=== PATIENT | male | born 1990 | race African-American/Black ===

== ENCOUNTER 2023-06-28 12:43 | Inpatient (IN) | payer OTHER ==
[2023-06-28 13:32] VITALS: BMI 21.3
[2023-06-28] MEDS ORDERED: LOPERAMIDE HCL 2 MG CAPSULE PO PRN (14:23)
[2023-06-28] MEDS ORDERED: POLYETHYLENE GLYCOL (HEALTHYLAX) 3350 17 GM PACKET PO PRN (14:23)
[2023-06-28] MEDS ORDERED: NALOXONE HCL 0.4 MG/ML VIAL IM PRN (14:23)
[2023-06-28] MEDS ORDERED: NALOXONE HCL (KLOXXADO) 8 MG SPRAY NS PRN (14:23)
[2023-06-28] MEDS ORDERED: MAGNESIUM HYDROX 2400MG/30ML ORAL SUSPENSION 30 ML CUP PO PRN (14:23)
[2023-06-28] MEDS ORDERED: BENZOCAINE/MENTHOL (CHLORASEPTIC ) LOZENGE MM PRN (14:23)
[2023-06-28] MEDS ORDERED: guaiFENesin 600 MG TABLET.ER (FP) PO PRN (14:23)
[2023-06-28] MEDS ORDERED: COLLOIDAL OATMEAL 1 BAR EACH TP PRN (14:23)
[2023-06-28] MEDS ORDERED: MAG HYDROX/AL HYDROX/SIMETH 30 ML UNIT-DOSE CUP PO PRN (14:23)
[2023-06-28] MEDS ORDERED: BENZONATATE 200 MG CAPSULE PO PRN (14:23)
[2023-06-28] MEDS ORDERED: NICOTINE POLACRILEX 2 MG GUM BUC PRN (14:30)
[2023-06-28] MEDS: THIAMINE HCL 100 MG TABLET (FP) PO SCH (21:52)
[2023-06-28] MEDS: MELATONIN 5 MG TABLETS PO SCH (21:52)
[2023-06-29] MEDS: NICOTINE 14 MG/24 HOURS TOPICAL PATCH TD SCH (10:14)
[2023-06-29] MEDS: PRENATAL VITAMINS W/ FOLIC ACID TABLET (FP) PO SCH (10:14)
[2023-06-29 12:09] LABS: HEMATOCRIT 41.3 % (35.4-49); HEMOGLOBIN 14.3 GM/dL (11.7-16.9); MCH 30.6 pg (25.7-33.7); MCHC 34.6 g/dl (32.0-35.9); MEAN CELL VOLUME 88.4 fl (80-96); MEAN PLT VOLUME 8.9 fl (7.5-11.1); PLATELET COUNT 307 10^3/uL (134-434); RBC 4.68 M/mm3 (4.00-5.60); RDW 13.1 % (11.9-15.9); WHITE BLOOD COUNT 2.9 K/mm3 (4.0-10.0)
[2023-06-29 12:34] LABS: CHLORIDE 102 mmol/L (98-107); POTASSIUM 4.7 mmol/L (3.5-5.1); SODIUM 138 mmol/L (136-145)
[2023-06-29 12:36] LABS: CALCIUM 9.4 mg/dL (8.5-10.1)
[2023-06-29 12:37] LABS: ALBUMIN 4.1 g/dl (3.4-5.0); GLUCOSE,RANDOM 83 mg/dL (74-106)
[2023-06-29 12:38] LABS: ANION GAP 9 mmol/L (4-13); BLOOD UREA NITROGEN 16.8 mg/dL (7-18); CO2 27 mmol/L (21-32)
[2023-06-29 12:40] LABS: CREATININE 1.1 mg/dL (0.55-1.3)
[2023-06-29 12:41] LABS: SGOT/AST 17 U/L (15-37); SGPT/ALT 46 U/L (13-61)
[2023-06-29 12:42] LABS: BILIRUBIN,TOTAL 0.8 mg/dL (0.2-1)
[2023-06-29 12:43] LABS: ALK PHOS 72 U/L (45-117)
[2023-06-29] MEDS ORDERED: BICTEGRAV/EMTRICIT/TENOFOV (BIKTARVY) 50-200-25 MG TABLET PO SCH ×2 (14:15→18:20)
[2023-06-29] MEDS: IBUPROFEN 600 MG TABLET (FP) PO PRN (16:50)
[2023-06-29] MEDS: BICTEGRAV/EMTRICIT/TENOFOV (BIKTARVY) 50-200-25 MG TABLET PO SCH (18:45)
[2023-06-29 18:50] LABS: PH,URINE 5.5 (5.0-8.0); URINE APPEARANCE CLEAR; URINE BILIRUBIN NEGATIVE (NEGATIVE); URINE COLOR YELLOW; URINE GLUCOSE (UA) NEGATIVE (NEGATIVE); URINE KETONE NEGATIVE (NEGATIVE); URINE LEUK ESTERASE NEGATIVE (NEGATIVE); URINE NITRITE NEGATIVE (NEGATIVE); URINE PROTEIN NEGATIVE (NEGATIVE); URINE UROBILINOGEN 0.2 mg/dL (0.2-1.0)
[2023-06-29] MEDS: MELATONIN 5 MG TABLETS PO SCH (21:43)
[2023-06-29] MEDS: THIAMINE HCL 100 MG TABLET (FP) PO SCH (21:43)
[2023-06-29] MEDS ORDERED: TRIMETHOBENZAMIDE HCL 200MG/2ML INJ IM ONE (22:09)
[2023-06-29] MEDS: hydrOXYzine PAMOATE 25 MG CAPSULE (FP) PO PRN (23:51)
[2023-06-30] MEDS: PRENATAL VITAMINS W/ FOLIC ACID TABLET (FP) PO SCH (09:24)
[2023-06-30] MEDS: NICOTINE 14 MG/24 HOURS TOPICAL PATCH TD SCH (09:26)
[2023-06-30] MEDS: BICTEGRAV/EMTRICIT/TENOFOV (BIKTARVY) 50-200-25 MG TABLET PO SCH (10:04)
[2023-06-30] MEDS ORDERED: TUBERCULIN PPD 5 TU/0.1ML VIAL ID ONE (10:52)
[2023-06-30] MEDS: IBUPROFEN 600 MG TABLET (FP) PO PRN (17:12)
[2023-06-30 17:48] LABS: HIV INTERPRETATION PRESUMPTIVE POSITIVE (NEGATIVE)
[2023-06-30] MEDS: THIAMINE HCL 100 MG TABLET (FP) PO SCH (21:30)
[2023-06-30] MEDS: MELATONIN 5 MG TABLETS PO SCH (21:30)
[2023-07-01] MEDS: BICTEGRAV/EMTRICIT/TENOFOV (BIKTARVY) 50-200-25 MG TABLET PO SCH (09:32)
[2023-07-01] MEDS: PRENATAL VITAMINS W/ FOLIC ACID TABLET (FP) PO SCH (09:33)
[2023-07-01] MEDS: NICOTINE 14 MG/24 HOURS TOPICAL PATCH TD SCH (09:33)
[2023-07-01] MEDS: IBUPROFEN 600 MG TABLET (FP) PO PRN (10:57)
[2023-07-01] MEDS: THIAMINE HCL 100 MG TABLET (FP) PO SCH (21:26)
[2023-07-01] MEDS: MELATONIN 5 MG TABLETS PO SCH (21:26)
[2023-07-01] MEDS: QUEtiapine FUMARATE 50 MG TABLET PO SCH (21:27)
[2023-07-01] MEDS ORDERED: QUEtiapine FUMARATE 50 MG TABLET PO SCH (22:00)
[2023-07-02] MEDS: NICOTINE 14 MG/24 HOURS TOPICAL PATCH TD SCH (09:48)
[2023-07-02] MEDS: BICTEGRAV/EMTRICIT/TENOFOV (BIKTARVY) 50-200-25 MG TABLET PO SCH (09:48)
[2023-07-02] MEDS: PRENATAL VITAMINS W/ FOLIC ACID TABLET (FP) PO SCH (09:48)
[2023-07-02] MEDS: QUEtiapine FUMARATE 50 MG TABLET PO SCH (21:16)
[2023-07-02] MEDS: MELATONIN 5 MG TABLETS PO SCH (21:16)
[2023-07-02] MEDS: THIAMINE HCL 100 MG TABLET (FP) PO SCH (21:16)
[2023-07-03] MEDS: NICOTINE 14 MG/24 HOURS TOPICAL PATCH TD SCH (09:48)
[2023-07-03] MEDS: PRENATAL VITAMINS W/ FOLIC ACID TABLET (FP) PO SCH (09:48)
[2023-07-03] MEDS: BICTEGRAV/EMTRICIT/TENOFOV (BIKTARVY) 50-200-25 MG TABLET PO SCH (09:48)
[2023-07-03] MEDS: MELATONIN 5 MG TABLETS PO SCH (21:19)
[2023-07-03] MEDS: QUEtiapine FUMARATE 50 MG TABLET PO SCH (21:19)
[2023-07-03] MEDS: THIAMINE HCL 100 MG TABLET (FP) PO SCH (21:19)
[2023-07-04] MEDS: IBUPROFEN 600 MG TABLET (FP) PO PRN (06:27)
[2023-07-04] MEDS: PRENATAL VITAMINS W/ FOLIC ACID TABLET (FP) PO SCH (09:52)
[2023-07-04] MEDS: BICTEGRAV/EMTRICIT/TENOFOV (BIKTARVY) 50-200-25 MG TABLET PO SCH (09:52)
[2023-07-04] MEDS: NICOTINE 14 MG/24 HOURS TOPICAL PATCH TD SCH (09:53)
[2023-07-04] MEDS: hydrOXYzine PAMOATE 25 MG CAPSULE (FP) PO PRN ×2 (10:03→21:27)
[2023-07-04] MEDS: OLANZapine 5 MG TABLET PO SCH ×2 (10:33→21:28)
[2023-07-04] MEDS ORDERED: NICOTINE 14 MG/24 HOURS TOPICAL PATCH TD PRN (16:05)
[2023-07-04] MEDS: THIAMINE HCL 100 MG TABLET (FP) PO SCH (21:27)
[2023-07-04] MEDS: MELATONIN 5 MG TABLETS PO SCH (21:28)
[2023-07-04] MEDS: QUEtiapine FUMARATE 50 MG TABLET PO SCH (21:28)
[2023-07-05] MEDS: PRENATAL VITAMINS W/ FOLIC ACID TABLET (FP) PO SCH (09:36)
[2023-07-05] MEDS: OLANZapine 5 MG TABLET PO SCH ×2 (09:36→21:19)
[2023-07-05] MEDS: BICTEGRAV/EMTRICIT/TENOFOV (BIKTARVY) 50-200-25 MG TABLET PO SCH (09:36)
[2023-07-05] MEDS: MELATONIN 5 MG TABLETS PO SCH (21:19)
[2023-07-05] MEDS: QUEtiapine FUMARATE 50 MG TABLET PO SCH (21:19)
[2023-07-05] MEDS: THIAMINE HCL 100 MG TABLET (FP) PO SCH (21:19)
[2023-07-06] MEDS: OLANZapine 5 MG TABLET PO SCH ×2 (09:35→21:12)
[2023-07-06] MEDS: BICTEGRAV/EMTRICIT/TENOFOV (BIKTARVY) 50-200-25 MG TABLET PO SCH (09:35)
[2023-07-06] MEDS: PRENATAL VITAMINS W/ FOLIC ACID TABLET (FP) PO SCH (09:35)
[2023-07-06] MEDS: THIAMINE HCL 100 MG TABLET (FP) PO SCH (21:12)
[2023-07-06] MEDS: MELATONIN 5 MG TABLETS PO SCH (21:12)
[2023-07-07] MEDS: PRENATAL VITAMINS W/ FOLIC ACID TABLET (FP) PO SCH (09:49)
[2023-07-07] MEDS: BICTEGRAV/EMTRICIT/TENOFOV (BIKTARVY) 50-200-25 MG TABLET PO SCH (09:49)
[2023-07-07] MEDS: OLANZapine 5 MG TABLET PO SCH ×2 (09:49→21:10)
[2023-07-07] MEDS: MELATONIN 5 MG TABLETS PO SCH (21:10)
[2023-07-07] MEDS: THIAMINE HCL 100 MG TABLET (FP) PO SCH (21:10)
[2023-07-07] MEDS: hydrOXYzine PAMOATE 25 MG CAPSULE (FP) PO PRN (22:48)
[2023-07-08] MEDS: OLANZapine 5 MG TABLET PO SCH ×2 (09:42→21:07)
[2023-07-08] MEDS: BICTEGRAV/EMTRICIT/TENOFOV (BIKTARVY) 50-200-25 MG TABLET PO SCH (09:42)
[2023-07-08] MEDS: PRENATAL VITAMINS W/ FOLIC ACID TABLET (FP) PO SCH (09:42)
[2023-07-08] MEDS: hydrOXYzine PAMOATE 25 MG CAPSULE (FP) PO PRN (12:44)
[2023-07-08] MEDS: IBUPROFEN 600 MG TABLET (FP) PO PRN (20:26)
[2023-07-08] MEDS: THIAMINE HCL 100 MG TABLET (FP) PO SCH (21:07)
[2023-07-08] MEDS: MELATONIN 5 MG TABLETS PO SCH (21:07)
[2023-07-09] MEDS: PRENATAL VITAMINS W/ FOLIC ACID TABLET (FP) PO SCH (09:30)
[2023-07-09] MEDS: BICTEGRAV/EMTRICIT/TENOFOV (BIKTARVY) 50-200-25 MG TABLET PO SCH (09:30)
[2023-07-09] MEDS: OLANZapine 5 MG TABLET PO SCH ×2 (09:30→21:12)
[2023-07-09] MEDS: IBUPROFEN 600 MG TABLET (FP) PO PRN ×2 (09:51→18:47)
[2023-07-09] MEDS: THIAMINE HCL 100 MG TABLET (FP) PO SCH (21:12)
[2023-07-09] MEDS: MELATONIN 5 MG TABLETS PO SCH (21:12)
[2023-07-10] MEDS: IBUPROFEN 600 MG TABLET (FP) PO PRN ×2 (01:55→14:59)
[2023-07-10] MEDS: ACETAMINOPHEN 325 MG TABLET (FP) PO PRN ×2 (03:10→21:46)
[2023-07-10] MEDS: PRENATAL VITAMINS W/ FOLIC ACID TABLET (FP) PO SCH (09:56)
[2023-07-10] MEDS: BICTEGRAV/EMTRICIT/TENOFOV (BIKTARVY) 50-200-25 MG TABLET PO SCH (09:57)
[2023-07-10] MEDS: OLANZapine 5 MG TABLET PO SCH ×2 (09:57→21:21)
[2023-07-10] MEDS: hydrOXYzine PAMOATE 25 MG CAPSULE (FP) PO PRN (10:52)
[2023-07-10] MEDS ORDERED: BENZOCAINE 20 % GEL TUBE MM PRN (13:55)
[2023-07-10] MEDS: IBUPROFEN 400 MG TABLET (FP) PO PRN (16:53)
[2023-07-10] MEDS: DOXYCYCLINE HYCLATE 100 MG TABLET PO SCH (17:38)
[2023-07-10] MEDS: THIAMINE HCL 100 MG TABLET (FP) PO SCH (21:21)
[2023-07-10] MEDS: MELATONIN 5 MG TABLETS PO SCH (21:21)
[2023-07-11] MEDS: ACETAMINOPHEN 325 MG TABLET (FP) PO PRN ×2 (08:58→14:46)
[2023-07-11] MEDS: PRENATAL VITAMINS W/ FOLIC ACID TABLET (FP) PO SCH (09:00)
[2023-07-11] MEDS: DOXYCYCLINE HYCLATE 100 MG TABLET PO SCH ×2 (09:00→17:02)
[2023-07-11] MEDS: BICTEGRAV/EMTRICIT/TENOFOV (BIKTARVY) 50-200-25 MG TABLET PO SCH (09:00)
[2023-07-11] MEDS: OLANZapine 5 MG TABLET PO SCH ×2 (09:00→21:01)
[2023-07-11] MEDS: hydrOXYzine PAMOATE 25 MG CAPSULE (FP) PO PRN ×2 (12:35→17:31)
[2023-07-11] MEDS: MELATONIN 5 MG TABLETS PO SCH (21:01)
[2023-07-11] MEDS: IBUPROFEN 400 MG TABLET (FP) PO PRN (21:01)
[2023-07-11] MEDS: THIAMINE HCL 100 MG TABLET (FP) PO SCH (21:01)
[2023-07-12 06:34] VITALS: RESP 16; TEMP 97.9
[2023-07-12] MEDS: BICTEGRAV/EMTRICIT/TENOFOV (BIKTARVY) 50-200-25 MG TABLET PO SCH (09:49)
[2023-07-12] MEDS: PRENATAL VITAMINS W/ FOLIC ACID TABLET (FP) PO SCH (09:49)
[2023-07-12] MEDS: OLANZapine 5 MG TABLET PO SCH ×2 (09:49→21:04)
[2023-07-12] MEDS: ACETAMINOPHEN 325 MG TABLET (FP) PO PRN ×2 (09:51→15:39)
[2023-07-12] MEDS: DOXYCYCLINE HYCLATE 100 MG TABLET PO SCH ×2 (10:19→17:36)
[2023-07-12] MEDS: MELATONIN 5 MG TABLETS PO SCH (21:04)
[2023-07-12] MEDS: THIAMINE HCL 100 MG TABLET (FP) PO SCH (21:04)
[2023-07-13 06:40] VITALS: BP 122/78; PULSE 73
[2023-07-13] MEDS: ACETAMINOPHEN 325 MG TABLET (FP) PO PRN (07:55)
[2023-07-13] MEDS: PRENATAL VITAMINS W/ FOLIC ACID TABLET (FP) PO SCH (09:43)
[2023-07-13] MEDS: DOXYCYCLINE HYCLATE 100 MG TABLET PO SCH (09:43)
[2023-07-13] MEDS: BICTEGRAV/EMTRICIT/TENOFOV (BIKTARVY) 50-200-25 MG TABLET PO SCH (09:43)
[2023-07-13] MEDS: OLANZapine 5 MG TABLET PO SCH (09:43)
[2023-07-13] MEDS: hydrOXYzine PAMOATE 25 MG CAPSULE (FP) PO PRN (10:28)
== END 2023-07-13 15:00 | disposition home or self-care (01) | DRG 772 ==
LOC: YASAS 12:43 → Y3E 18:44
PROVIDERS: ADMIT Allergy & Immunology; ATTEND Psychiatry & Neurology Pain Medicine
PROC: HZ42ZZZ Group Counseling for Substance Abuse Treatment, Cognitive-Behavioral (ICD-10-PCS; principal; 2023-06-28)
DX: F15.20 Other stimulant dependence, uncomplicated (principal); F12.20 Cannabis dependence, uncomplicated; F17.210 Nicotine dependence, cigarettes, uncomplicated; F20.9 Schizophrenia, unspecified; F31.9 Bipolar disorder, unspecified; F43.10 Post-traumatic stress disorder, unspecified; Z21 Asymptomatic human immunodeficiency virus [HIV] infection status; K08.89 Other specified disorders of teeth and supporting structures; Z86.19 Personal history of other infectious and parasitic diseases; Z88.0 Allergy status to penicillin
CPT/HCPCS: 36415; 80053; 80307; 81003; 85027; 86359; 86360; 86593; 86780; 87389; 87491; 87591; 87635; 87661